=== PATIENT | male | born 1970 | race Caucasian/White ===

== ENCOUNTER 2017-04-24 23:35 | Emergency (ER) | payer MEDICAID ==
[~2017-04-24] VITALS: Ht 177.8 cm; Wt 84.3 kg
[~2017-04-24 23:35] MED LIST: ALLO300T PO; ARMO150T4 PO; CARV12.52 PO; FURO40TA6 PO; METF500T4 PO; POTA20PA PO; QUIN20TA17 PO; SPIR25TA3 PO
[2017-04-25] MEDS ORDERED: SODIUM CHLORIDE 0.9% 1,000ML IVBOLUS ONE
[2017-04-25] MEDS ORDERED: SODIUM CHLORIDE FLUSH 10ML SYR IVF ONE
[2017-04-25 00:14] LABS: HEMATOCRIT 46.4 % (39.2-51.8); HEMOGLOBIN 15.5 g/dL (13.7-18.0); WHITE BLOOD COUNT 10.9 x10^3/uL (3.4-10)
[2017-04-25 00:26] LABS: ASPARTATE AMINO TRANSFERASE 31 U/L (15-37); BLOOD UREA NITROGEN 20 mg/dL (7-18)
[2017-04-25 00:29] LABS: IS PT STATUS REG ER OR PRE ER? YES
[2017-04-25 01:03] VITALS: BP 168/102
== END 2017-04-25 01:52 | disposition home or self-care (01) ==
LOC: ED 04-25 01:50
DX: I10 Essential (primary) hypertension (principal); R55 Syncope and collapse; I25.2 Old myocardial infarction; E11.9 Type 2 diabetes mellitus without complications; E78.5 Hyperlipidemia, unspecified; Z79.84 Long term (current) use of oral hypoglycemic drugs
CPT/HCPCS: 36415; 71020; 80053; 84484; 85025; 93005; 96360; 99285; J7030

== ENCOUNTER 2019-01-14 23:10 | Inpatient (IN) | payer MEDICAID, OTHER ==
[~2019-01-14] VITALS: Ht 177.8 cm; Wt 88.3 kg
[2019-01-16 14:00] VITALS: BP 157/89
== END 2019-01-16 14:39 | disposition home or self-care (01) | DRG 281 ==
LOC: ED 01-15 01:57 → EDIP 01-15 02:10 → 5SO 01-15 03:25
PROVIDERS: ADMIT Internal Medicine; ATTEND Internal Medicine
DX: I21.4 Non-ST elevation (NSTEMI) myocardial infarction (principal); I42.9 Cardiomyopathy, unspecified; I50.30 Unspecified diastolic (congestive) heart failure; R45.851 Suicidal ideations; E46 Unspecified protein-calorie malnutrition; E11.9 Type 2 diabetes mellitus without complications; E78.5 Hyperlipidemia, unspecified; F15.10 Other stimulant abuse, uncomplicated; I11.0 Hypertensive heart disease with heart failure; I25.10 Atherosclerotic heart disease of native coronary artery without angina pectoris; Z59.0 Homelessness; Z82.49 Family history of ischemic heart disease and other diseases of the circulatory system; Z83.3 Family history of diabetes mellitus; Z91.19 Patient's noncompliance with other medical treatment and regimen; Z91.5 Personal history of self-harm; Z68.27 Body mass index [BMI] 27.0-27.9, adult; Z79.899 Other long term (current) drug therapy
CPT/HCPCS: 36415; 71045; 71275; 78452; 80048; 80053; 80307; 82962; 83036; 83735; 83880; 84443; 84484; 85025; 93005; 93017; 93306; 99285; G0378; J1644; J1650; J2785; Q9967; A9502; J7120